=== PATIENT | female | born 1965 | race Caucasian/White ===

== ENCOUNTER 2016-05-22 13:20 | Emergency (ER) | payer BC ==
[~2016-05-22] VITALS: Ht 157.5 cm; Wt 53.5 kg
[~2016-05-22 13:20] MED LIST: LEVOTHYROXINE75 MCG PO; NORCO 5/3251 TABLET PO; PAXIL CR25 MG PO; RELAFEN750 MG PO; VICODIN,LORT1 TABLET PO; ZOCOR40 MG PO
[2016-05-22 14:38] LABS: BASOPHIL COUNT 0.1 K/uL (0-0.1); EOSINOPHIL (%) 1.1 % (0-5); EOSINOPHIL COUNT 0.2 K/uL (0-0.3); HEMATOCRIT 42.9 % (36.0-46.0); IMMATURE GRANULOCYTE (%) 0.5 % (0.0-0.7); IMMATURE GRANULOCYTE COUNT 0.1 K/uL; INSTRUMENT ABS NEUTROPHIL CT 10.1 K/uL; LYMPHOCYTE COUNT 2.2 K/uL (1.0-2.8); MCH 30.7 PG (29.0-34.0); MCHC 33.3 G/DL (30.0-36.0); MCV 92.1 FL (83-99); MEAN PLAT.VOLUME 9.9 uM^3 (9.5-12.4); MONOCYTE (%) 5.3 % (3-12); MONOCYTE COUNT 0.7 K/uL (0-0.8); NEUTROPHIL (%) 75.7 % (45-76); NEUTROPHIL COUNT 10.1 K/uL (1.8-6.4); PLATELET COUNT 171 K/uL (156-360); RBC DIS.WIDTH-CV 11.9 % (11.8-14.6); RBC DIS.WIDTH-SD 40.6 % (39-53); RED BLOOD COUNT 4.66 M/uL (3.80-5.20); WHITE BLOOD COUNT 13.3 K/uL (4.1-10.2)
[2016-05-22 14:45] LABS: CHLORIDE 103 mEq/L (99-109); POTASSIUM 3.2 mEq/L (3.7-5.4); SODIUM 138 mEq/L (136-147)
[2016-05-22 14:48] LABS: GLUCOSE 104 mg/dL (70-99)
[2016-05-22 14:49] LABS: ANION GAP 10 MEQ/L (2-14); D-DIMER ELISA 0.32 mg/L FEU (< 0.57)
[2016-05-22 14:50] LABS: TOTAL BILIRUBIN 0.8 mg/dL (0.0-1.0)
[2016-05-22 14:51] LABS: ALKALINE PHOSPHATASE 56 IU/L (3-129); GFR ESTIMATE (CALCULATED) > 59 mL/min/
[2016-05-22 14:52] LABS: UREA NITROGEN (BUN) 8 mg/dL (9-23)
[2016-05-22 15:00] LABS: TROP-I INTERPRETATION NEGATIVE; TROPONIN-I < 0.01 ng/mL (0.0-0.30)
[2016-05-22] MEDS ORDERED: PRILOSEC20 MG PO (20:13)
[2016-05-22] MEDS ORDERED: ULTRAM50 MG PO (20:13)
[2016-05-22] MEDS ORDERED: REGLAN10 MG PO (20:13)
[2016-05-22 20:47] VITALS: BP 137/82
== END 2016-05-22 20:40 | disposition home or self-care (01) ==
LOC: EME 13:20
PROVIDERS: Emergency Medicine
DX: K20.9 Esophagitis, unspecified (principal); R07.9 Chest pain, unspecified; E78.5 Hyperlipidemia, unspecified; E03.9 Hypothyroidism, unspecified; F17.200 Nicotine dependence, unspecified, uncomplicated
CPT/HCPCS: 71010; 71275; 80053; 84484; 85025; 85379; 93005; 99281; 99285; J2270; J2405; J2765; S0028

== ENCOUNTER 2016-06-25 17:57 | Emergency (ER) | payer BC ==
[~2016-06-25] VITALS: Ht 162.6 cm; Wt 51.0 kg
[~2016-06-25 17:57] MED LIST changes: +PRILOSEC20 MG PO; +REGLAN10 MG PO; +ULTRAM50 MG PO
[2016-06-25 18:59] LABS: HEMATOCRIT 39.9 % (36.0-46.0); MCH 31.1 PG (29.0-34.0); MCHC 33.8 G/DL (30.0-36.0); MCV 91.9 FL (83-99); MEAN PLAT.VOLUME 9.7 uM^3 (9.5-12.4); PLATELET COUNT 171 K/uL (156-360); RBC DIS.WIDTH-CV 12.1 % (11.8-14.6); RBC DIS.WIDTH-SD 40.9 % (39-53); RED BLOOD COUNT 4.34 M/uL (3.80-5.20); WHITE BLOOD COUNT 11.1 K/uL (4.1-10.2)
[2016-06-25 19:14] LABS: CHLORIDE 108 mEq/L (99-109); POTASSIUM 3.8 mEq/L (3.7-5.4); SODIUM 143 mEq/L (136-147)
[2016-06-25 19:16] LABS: GLUCOSE 89 mg/dL (70-99)
[2016-06-25 19:17] LABS: ANION GAP 10 MEQ/L (2-14)
[2016-06-25 19:20] LABS: GFR ESTIMATE (CALCULATED) > 59 mL/min/
[2016-06-25 19:21] LABS: UREA NITROGEN (BUN) 9 mg/dL (9-23)
[2016-06-25] MEDS ORDERED: CLEOCIN300 MG PO (21:05)
[2016-06-25] MEDS ORDERED: ZOFRAN4 MG PO (21:06)
[2016-06-25] MEDS ORDERED: PERCOCET 5/31 TABLET PO (21:06)
[2016-06-25 21:35] VITALS: BP 146/74
[2016-06-25] MEDS ORDERED: OMEPRAZOLE20 MG PO (23:57)
[2016-06-25] MEDS ORDERED: MEDROL DOSEPAK4 MG PO (23:58)
[2016-06-25] MEDS ORDERED: LEVOTHYROXINE88 MCG PO (23:58)
[2016-06-25] MEDS ORDERED: IBUPROFEN800 MG PO (23:59)
[2016-06-26] MEDS ORDERED: AMOXICILLIN500 MG PO
== END 2016-06-25 21:38 | disposition home or self-care (01) ==
LOC: EME 17:57
PROVIDERS: Emergency Medicine
DX: L03.211 Cellulitis of face (principal); L03.213 Periorbital cellulitis; E78.5 Hyperlipidemia, unspecified; F17.200 Nicotine dependence, unspecified, uncomplicated
CPT/HCPCS: 70487; 80048; 83605; 85027; 99281; 99284; J1885; J2270; J2405

== ENCOUNTER 2016-06-25 23:07 | Observation (INO) | payer BC ==
[~2016-06-25] VITALS: Ht 157.5 cm; Wt 54.0 kg
[~2016-06-25 23:07] MED LIST changes: +CLEOCIN300 MG PO; +PERCOCET 5/31 TABLET PO; +ZOFRAN4 MG PO
[2016-06-25] MEDS ORDERED: OMEPRAZOLE20 MG PO (23:57)
[2016-06-25] MEDS ORDERED: LEVOTHYROXINE88 MCG PO (23:58)
[2016-06-25] MEDS ORDERED: MEDROL DOSEPAK4 MG PO (23:58)
[2016-06-25] MEDS ORDERED: IBUPROFEN800 MG PO (23:59)
[2016-06-26] MEDS ORDERED: AMOXICILLIN500 MG PO
[2016-06-26 03:05] VITALS: BP 121/54
[2016-06-26 07:38] VITALS: BP 105/56
[2016-06-26 15:09] VITALS: BP 116/67
[2016-06-26 19:30] VITALS: BP 128/67
[2016-06-26 23:24] VITALS: BP 124/58
[2016-06-27 00:44] LABS: METH RESISTANT S AUREUS PCR NEGATIVE (NEGATIVE)
[2016-06-27 00:52] LABS: PROBE CHECK PASS; SPECIMEN PROCESSING CONTROL PASS
[2016-06-27 03:19] VITALS: BP 137/73
[2016-06-27 04:48] LABS: CHLORIDE 110 mEq/L (99-109); POTASSIUM 4.1 mEq/L (3.7-5.4); SODIUM 141 mEq/L (136-147)
[2016-06-27 04:50] LABS: GLUCOSE 94 mg/dL (70-99)
[2016-06-27 04:51] LABS: ANION GAP 9 MEQ/L (2-14)
[2016-06-27 04:54] LABS: GFR ESTIMATE (CALCULATED) > 59 mL/min/
[2016-06-27 04:55] LABS: EOSINOPHIL (%) 3.7 % (0-5); EOSINOPHIL COUNT 0.2 K/uL (0-0.3); HEMATOCRIT 32.9 % (36.0-46.0); IMMATURE GRANULOCYTE (%) 0.3 % (0.0-0.7); INSTRUMENT ABS NEUTROPHIL CT 3.7 K/uL; LYMPHOCYTE COUNT 1.9 K/uL (1.0-2.8); MCH 31.3 PG (29.0-34.0); MCHC 33.4 G/DL (30.0-36.0); MCV 93.5 FL (83-99); MEAN PLAT.VOLUME 10.6 uM^3 (9.5-12.4); MONOCYTE (%) 4.6 % (3-12); MONOCYTE COUNT 0.3 K/uL (0-0.8); NEUTROPHIL (%) 59.8 % (45-76); NEUTROPHIL COUNT 3.7 K/uL (1.8-6.4); PLATELET COUNT 134 K/uL (156-360); RBC DIS.WIDTH-CV 12.3 % (11.8-14.6); RBC DIS.WIDTH-SD 42.4 % (39-53); RED BLOOD COUNT 3.52 M/uL (3.80-5.20); UREA NITROGEN (BUN) 11 mg/dL (9-23)
[2016-06-27 04:56] LABS: WHITE BLOOD COUNT 6.3 K/uL (4.1-10.2)
[2016-06-27 07:23] VITALS: BP 100/50
[2016-06-27 11:31] VITALS: BP 110/64
[2016-06-27 15:49] VITALS: BP 137/85
[2016-06-27] MEDS ORDERED: FLORASTOR250 MG PO (17:43)
[2016-06-27] MEDS ORDERED: BACTRIM,SEPT1 TABLET PO (17:45)
[2016-06-27] MEDS ORDERED: AUGMENTIN875 MG PO (17:45)
[2016-06-27] MEDS ORDERED: TRAMADOL HCL50 MG PO (17:54)
== END 2016-06-27 18:39 | disposition home or self-care (01) ==
LOC: EME 23:07 → 5WEST 06-26 01:36 → EDOF 06-26 01:36 → 5WEST 06-26 02:52
PROVIDERS: Internal Medicine Infectious Disease; Student in an Organized Health Care Education/Training Program
DX: L03.211 Cellulitis of face (principal); I10 Essential (primary) hypertension; E78.5 Hyperlipidemia, unspecified; F17.210 Nicotine dependence, cigarettes, uncomplicated; F32.9 Major depressive disorder, single episode, unspecified
CPT/HCPCS: 80048; 85025; 85651; 86140; 87040; 87641; 99281; 99285; G0378; J0295; J1650; J1885; J2270; J2405; J3370; J7030; J7050